=== PATIENT | female | born 1985 | race Caucasian/White ===

== ENCOUNTER 2021-05-04 18:22 | Emergency (ER) | payer OTHER ==
--- NOTE | 2021-05-04 19:10 | ERPHSYRPT ---
- History of Present Illness Time Seen by Provider: 05/04/21 18:40 Source: patient Exam Limitations: no limitations Patient Subjective Stated Complaint: pt here for FC that is not draining, she had abd hyster and bladder tie on saturday and had urinary retention and had to h ave cath placed, she cath was flushed at home and did not help Triage Nursing Assessment: pt alert, walked in, resp easy, face mask in place, abd binder on, has steri strips to abd incsion well approximated, pt has fc in place, with yellow urine in bag and tubing Physician History: 36 years old female status post recent abdominal hysterectomy with bladder sling elevation with postop urinary retention needing catheter placement presented in the ER when she noticed that since morning she is having dull aching pain in the suprapubic area and decreased urine output. She tried to flush at home but could not. Does not report any hematuria. On arrival in the ER patient catheter is flushed and it is draining freely with very small clots retrieved. No fever or chills reported. Timing/Duration: today, gradual onset, worse Activites at Onset: rest Quality: dullness Onset Location: suprapubic Pain Radiation: none Severity of Pain-Max: moderate Severity of Pain-Current: mild Sexual intercourse history: non-contributory Modifying Factors: Improves With: nothing Allergies/Adverse Reactions: No Known Drug Allergies Allergy (Unverified 05/04/21 18:52) Hx Tetanus, Diphtheria Vaccination/Date Given: Yes Hx Influenza Vaccination/Date Given: No Hx Pneumococcal Vaccination/Date Given: No Travel Risk - International Travel Have you traveled outside of the country in past 3 weeks: No - Coronavirus Screening Are you exhibiting any of the following symptoms?: No Close contact with a COVID-19 positive Pt in past 14-21 Days: No - Vaccine Status Have you recieved a Covid-19 vaccination: No - Review of Systems Constitutional: No Symptoms Eyes: No Symptoms Ears, Nose, & Throat: No Symptoms Respiratory: No Symptoms Cardiac: No Symptoms Abdominal/Gastrointestinal: Abdominal Pain Genitourinary Symptoms: Urinary Retention Musculoskeletal: No Symptoms Skin: No Symptoms Neurological: No Symptoms Psychological: No Symptoms Endocrine: No Symptoms Hematologic/Lymphatic: No Symptoms - Past Medical History Pertinent Past Medical History: Yes Endocrine Medical History: Hypothyroidism - Past Surgical History Past Surgical History: Yes Female Surgical History: Hysterectomy - Social History Smoking Status: Former smoker Exposure to second hand smoke: No Drug Use: none Patient Lives Alone: No - Female History Hx Last Menstrual Period: hyster Hx Now: No - Nursing Vital Signs Nursing Vital Signs: Initial Vital Signs Temperature 98.4 F 05/04/21 18:45 Pulse Rate 107 H 05/04/21 18:45 Respiratory Rate 18 05/04/21 18:45 Blood Pressure 135/89 05/04/21 18:45 O2 Sat by Pulse Oximetry 98 05/04/21 18:45 Pain Scale Pain Intensity 6 - Physical Exam General Appearance: no apparent distress Ears, Nose, Throat Exam: normal ENT inspection Neck Exam: normal inspection, full range of motion Respiratory Exam: normal breath sounds, lungs clear Cardiovascular Exam: regular rate/rhythm, normal heart sounds Gastrointestinal/Abdomen Exam: soft, normal bowel sounds, tenderness (Lower abdominal transverse incision well-healing, dry without any drainage. Appropriate tenderness in the suprapubic area.) Extremity Exam: normal inspection, normal range of motion Neurologic Exam: alert, oriented x 3, cooperative Skin Exam: normal color SpO2 Interpretation: normal SpO2: 98 O2 Delivery: Room Air - Progress Progress: improved Air Movement: good Progress Note: 05/04/21 19:08 I have done ultrasound bedside which did not show any urinary retention. Catheter is flushed by me again with free drainage, clear urine. I believe patient might have some element of decreased oral liquid intake which she is encouraged to take extra liquids. Do not think she needs a catheter replacement. Recommended outpatient follow-up. Blood Culture(s) Obtained: No Antibiotics given: No Counseled pt/family regarding: diagnosis, need for follow-up - Departure Departure Disposition: Home Clinical Impression: Hu catheter problem Qualifiers: Encounter type: initial encounter Qualified Code(s): T83.9XXA - Unspecified complication of genitourinary prosthetic device, implant and graft, initial encounter Condition: Stable Critical Care Time: No Referrals: LETA FERNANDEZ [Primary Care Provider] - Follow up/PCP as directed JEREMY DALEY [ACTIVE STAFF] - Follow up/PCP as directed (Call tomorrow morning for reevaluation) Instructions: Urinary Retention (DC) Additional Instructions: Drink plenty of fluids to keep yourself well-hydrated. Follow-up with primary care and general surgery for reevaluation. Return to ER with difficulty urinary drainage, lower abdominal distention/pain etc.
[2021-05-08 16:59] VITALS: BP 121/68; PULSE 102; O2SAT 98
== END 2021-05-04 19:29 | disposition home or self-care (01) ==
LOC: ED 18:22
DX: T83.9XXA Unspecified complication of genitourinary prosthetic device, implant and graft, initial encounter (principal); R10.30 Lower abdominal pain, unspecified
CPT/HCPCS: 99283